=== PATIENT | male | born 1960 | race Caucasian/White ===

== ENCOUNTER 2024-01-17 09:50 | Emergency (ER) | payer MEDICARE, OTHER, SELFPAY ==
[2024-01-17] VITALS (12 sets, daily range): BP systolic 136–183; BP diastolic 90–121; PULSE 69–92; BMI 26.7
[2024-01-17 10:22] LABS: % Basophils 1.1 % (0-2); % Eosinophils 5.4 % (0-6); % Immature Granulocytes 0.3 % (0-0.5); % Monocytes 7.2 % (1.7-9.3); Absolute Basophils 0.1 10^3/uL (0-0.2); Absolute Eosinophils 0.3 10^3/uL (0-0.7); Absolute Lymphocytes 1.6 10^3/uL (1.2-3.4); Absolute Monocytes 0.5 10^3/uL (0.1-0.6); Absolute Neutrophils 3.8 10^3/uL (1.4-6.5); Hematocrit 52.2 % (39.0-52.0); Hemoglobin 17.7 g/dL (13.0-18.0); Mean Corp Hgb Conc. 33.9 g/dL (33.0-37.0); Mean Corpuscular Hgb 29.4 pg (27.0-31.0); Mean Corpuscular Volume 86.7 fL (80.0-94.0); Mean Platelet Volume 10.1 fL (7.4-10.4); Nucleated Red Blood Cells % 0 % (-); Platelet Count 215 10^3/uL (130-400); Red Blood Cell Count 6.02 10^6/uL (4.70-6.10); Red Cell Dist. Width 12.2 % (11.5-14.5); White Blood Cell Count 6.3 10^3/uL (4.8-10.8)
--- NOTE | 2024-01-17 10:28 | ED.GENMED ---
History of Present Illness
<Page Orellana PA-C - Last Filed: 01/18/24 12:01>
General
Chief Complaint: Dizziness
Source: patient
Exam Limitations: none
Time Seen by Provider: 01/17/24 10:08
Nursing documentation reviewed up to this point in time: agreed with
History of Present Illness
History of Present Illness:
Patient is a 63 year old male with hx HTN, POTS presenting to the emergency department via EMS for evaluation of dizziness. Patient states that starting yesterday evening he noticed dizziness and a spinning sensation worse when he turned his head.
Patient was able to sleep last night but states that when he woke up this morning dizziness sensation was more pronounced. States that he does not notice symptoms when he is lying completely still but with any movement of head or 'reaching' motion
with arms has symptoms. Patient denies any associated chest pain, shortness of breath, numbness/tingling in extremities, headache, visual changes, hearing loss, nausea or vomiting. Patient denies any fever or chills.
Patient does report that he has similar symptoms about once per year. Typically - he has improvement with a few liters of IV fluids.
Patient endorses compliance with BP medications.
Past History
<Page Orellana PA-C - Last Filed: 01/18/24 12:01>
Past History
ED Past Medical History: Other (Dysautonomia, POTS)
ED Past Surgical History: Other (deviated septum repair)
Social History
Tobacco: Non-smoker
Alcohol: None
Personal:
Living: with family
Employment: Other
Family History
Family History: Hypertension and Other (reviewed and Noncontributory)
Review of Systems
<Page Orellana PA-C - Last Filed: 01/18/24 12:01>
Review of Systems
Allergies reviewed?: Yes
All Other Systems: ROS reviewed and negative except as documented in HPI and ROS
Phy Exam
<Page Orellana PA-C - Last Filed: 01/18/24 12:01>
Physical Exam
Physical Exam:
Vitals: Hypertensive, otherwise vital signs reviewed. Afebrile
General: Patient is well appearing, no acute distress
Skin: Warm and dry, no rashes or lesions
Head: Normocephalic, atraumatic
Eyes: Sclera nonicteric. EOMs intact. No nystagmus. Pupils equal round and reactive to light bilaterally. Positive Cranberry-Hallpike to left.
Throat: Protecting airway
Neck: Normal ROM, no cervical spine tenderness, no meningismus
Cardiac: Regular rate and rhythm, no murmurs.
Pulm: Normal respiratory effort, no wheezes, rales, rhonchi heard on exam.
Abdomen: Abdomen soft. No abdominal tenderness.
Extremities: No evidence of cyanosis or edema. Great distal pulses.
Neuro: AAOx3. CN II-XII intact. No focal neurologic deficits. Normal finger to nose. Normal heel to fontana. Great light sensation of b/l upper and lower extremities. Strength 5/5 in upper and lower extremities.
Psychiatric: Normal affect.
Course
<Page Orellana PA-C - Last Filed: 01/18/24 12:01>
Orders/Labs/Results
Orders:
Orders
01/17/24
Electrocardiogram (*1) Stat
Other Reason for Exam: CP
Comment: DONE
01/17/24 10:01
Cardiac Monitoring- Treatment ONCE
01/17/24 10:06
CMP [Comprehensive Metabolic Panel] Urgent
Complete Blood Count/With Diff Urgent
01/17/24 10:28
Orthostatic VS- Treatment ONCE
0.9% Sodium Chloride 1000 ml [Nss] 1,000 ml IV BOLUS
01/17/24 11:04
Meclizine [Antivert] 25 mg PO NOW STA
01/17/24 12:45
0.9% Sodium Chloride 500 ml [Nss] 500 ml IV BOLUS
Abnormal Lab Results
01/17/24
10:06
Hct 52.2 H %
(39.0-52.0)
Glucose 113 H mg/dl
(70-99)
01/17/24 10:06
01/17/24 10:06
Vital Signs
Blood pressure: 169/111
Initial and Last Documented VS:
Initial Vital Signs
Temp Pulse Resp BP Pulse Ox
99.2 F 75 14 183/113 96
01/17/24 09:55 01/17/24 09:55 01/17/24 09:55 01/17/24 09:55 01/17/24 09:55
Last Documented Vital Signs
Temp Pulse Resp BP Pulse Ox
99.2 F 62 15 152/100 95
01/17/24 09:55 01/17/24 14:00 01/17/24 14:00 01/17/24 14:00 01/17/24 13:30
<Monty Wilson, DO - Last Filed: 01/17/24 11:10>
Orders/Labs/Results
Orders:
Orders
01/17/24
Electrocardiogram (*1) Stat
Other Reason for Exam: CP
Comment: DONE
01/17/24 10:01
Cardiac Monitoring- Treatment ONCE
01/17/24 10:06
CMP [Comprehensive Metabolic Panel] Urgent
Complete Blood Count/With Diff Urgent
01/17/24 10:28
Orthostatic VS- Treatment ONCE
0.9% Sodium Chloride 1000 ml [Nss] 1,000 ml IV BOLUS
01/17/24 11:04
Meclizine [Antivert] 25 mg PO NOW STA
01/17/24 12:45
0.9% Sodium Chloride 500 ml [Nss] 500 ml IV BOLUS
Abnormal Lab Results
01/17/24
10:06
Hct 52.2 H %
(39.0-52.0)
Glucose 113 H mg/dl
(70-99)
01/17/24 10:06
01/17/24 10:06
Vital Signs
Initial and Last Documented VS:
Initial Vital Signs
Temp Pulse Resp BP Pulse Ox
99.2 F 75 14 183/113 96
01/17/24 09:55 01/17/24 09:55 01/17/24 09:55 01/17/24 09:55 01/17/24 09:55
Last Documented Vital Signs
Temp Pulse Resp BP Pulse Ox
99.2 F 62 15 152/100 95
01/17/24 09:55 01/17/24 14:00 01/17/24 14:00 01/17/24 14:00 01/17/24 13:30
<Page Orellana PA-C - Last Filed: 01/18/24 12:01>
MDM/Problems Addressed
Differential Diagnosis Includes:
Not limited to: BPPV, menieres disease, dehydration, cardiac arrythmia, orthostatic hypotension, hyponatremia, POTS,
MDM/Problems Addressed:
63 year old male with history POTS presenting with positional vertigo and lightheadedness. Patient states feels like typical POTS flare which improves with IV fluids. Patient hypertensive, otherwise vitals stable. Physical exam as above. No focal
neurological deficits. Normal finger to nose bilaterally. Patient has excellent sensation to light touch on bilateral upper and lower extremities. Positive Heydi-Hallpike to left. No neuro deficits to suggest acute intracranial abnormality or stroke.
Will treat symptomatically with IVF and meclizine given suspected component of positional vertigo.
In to reassess patient. Patient with significant improvement with fluids and meclizine. Patient ambulating independently without difficulty. Steady gait. Blood pressure has decreased, although remains elevated. 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
for possible adjustments in anti-hypertensive regimen. Return precautions discussed. Stable for discharge.
Chronic conditions affecting care:
POTS
Acute Exacerbation and/or Progression of Chronic Illness:
N/A
<Page Orellana PA-C - Last Filed: 01/18/24 12:01>
*Pulse Oximetry
Patient hypoxic: no
*EKG
Interpreted by ED Provider?: Yes
EKG Intrepretation Date: 01/17/24
Interpretation: normal
Comparison EKG: no changes
Heart Rate: 71
Rate: normal
Rhythm: sinus
[place]: normal axis
Interval: normal interval
QRS Pattern: normal QRS
Ischemia: no ischemia
*Store Clerk Cashier Interpretation
Rate: normal
Interpretation: normal
Heart Rate: 75
Rhythm: sinus
*Critical Care Note
Total Time (30-74mins, 75-104mins- exclusive of procedures): Not Applicable
Data Reviewed
Review of Other/Old Records Reveals: Records
Source: previous hospital records (ER visit for similar complaint 05/11/21)
Further Testing Considered But Not Given:
Head CT - no focal neurological deficits. Symptoms improved with symptomatic treatment. Do not suspect acute intracranial abnormality vs stroke
ED Attending Note
<Page Orellana PA-C - Last Filed: 01/18/24 12:01>
-
Portions of this chart may have been created with voice recognition software.� Occasional wrong word or��sound alike� substitutions may have occurred due to the inherent limitations of voice recognition software.
<Monty Wilson DO - Last Filed: 01/17/24 11:10>
ED Attending Note
Patient seen and examined by attending physician: Yes
I performed the substantive portion of visit, reviewed & personally made and approve the management plan that is documented in note by myself or DEMETRIA.: Yes
ED Attending Note:
I have seen and evaluated the patient with a [id number] encounter. I have spoken to the advance practicer provider and involved in the medical history, the physical exam, medical decision making.
Evaluation and management service: agree unless noted differently below.
Results interpretation: agree unless noted differently below.
Focused HPI: 63-year-old male presenting with dizziness. Patient states this feels like a POTS flare. Patient states IV fluids usually helps.
Physical exam: Sitting in bed comfortably. Normal finger-nose bilaterally. Positive Heydi-Hallpike to the left.
Medical Decision Making: Patient feeling better after IV fluids but will give dose of meclizine for possible vertigo as well. He has no focal deficits to suggest intracranial hemorrhage or stroke
Discharge Plan
Departure
Patient Disposition: Home (Routine Discharge)
Date of Disposition: 01/17/24
Time of Disposition: 13:50
Patient with high blood pressure during this ER visit?: No
Condition: Good
Discharge Problem:
Positional vertigo
Instructions: Vertigo (a type of dizziness), BLOOD PRESSURE
Prescriptions:
New
meclizine 25 mg tablet
25 mg PO BID PRN (Reason: dizziness) Qty: 10 0RF
No Action
cyanocobalamin (vitamin B-12) 1,000 MCG tablet
1,000 mcg PO DAILY
lidocaine 1 PATCH adhesive patch,medicated
1 patch topical DAILY Qty: 30 2RF
Rx Instructions:
ON FOR 12 HOURS, OFF FOR 12 HOURS
Apply Patch to painful area
magnesium oxide 500 MG tablet
500 mg PO HS
docosahexaenoic acid-epa 1 CAP capsule
1 cap PO HS
cholecalciferol (vitamin D3) 1,000 UNITS tablet
1,000 units PO DAILY
turmeric 400 MG capsule
400 mg PO DAILYPRN PRN (Reason: inflammation)
carvedilol 3.125 MG tablet
3.125 mg PO BID
amitriptyline 25 MG tablet
25 mg PO BID
Referrals:
Tima Morales MD [Family Provider] - Follow up in 1 week
Activity Restrictions/Additional Instructions:
RETURN TO THE EMERGENCY DEPARTMENT WITH ANY HEADACHE, FEVER, CHILLS, CHEST PAIN, SHORTNESS OF BREATH, PERSISTENT DIZZINESS, WORSENING IN CURRENT SYMPTOMS, OR ANY OTHER CONCERNS
-As discussed�it is important to stay well-hydrated. A prescription for meclizine has been sent to your pharmacy. You can take this twice a day as needed for persistent vertigo.
-You should follow-up with your primary care provider to ensure that symptoms are improving/for further evaluation.
-Your blood pressure was elevated while in the emergency department today. You should follow up with your burial vault deliverer and installer for further evaluation/management of your high blood pressure and consider possible medication adjustments.
Interventions
Interventions:
*Risk Screen - Suicide Last Done: 01/17/24 10:20
*General Assessment Last Done: 01/17/24 10:20
*Neglect/Abuse Screening Last Done: 01/17/24 10:20
ED- Fall Risk Assessment Last Done: 01/17/24 10:20
*ED COVID-19 Vaccine History Last Done: 01/17/24 10:20
*Nursing Disposition Last Done: 01/17/24 14:28
ED- Neurological Assessment Last Done: 01/17/24 10:20
ED- Cardiac Assessment Last Done: 01/17/24 10:20
Discharge Date and Time
Discharge Date/Time: 01/17/24 14:28
Print Language: MALTESE
[2024-01-17] MEDS: NSS 1000 IV (10:56)
[2024-01-17 11:02] LABS: ALT (SGPT) 31 U/L (0-50); AST (SGOT) 26 U/L (17-59); Albumin 4.4 g/dl (3.5-5.0); Alkaline Phosphatase 66 U/L (38-126); Blood Urea Nitrogen 11 mg/dl (9-20); Calcium 9.4 mg/dl (8.4-10.2); Carbon Dioxide 26 mmol/L (22-30); Chloride 105 mmol/L (98-107); Estimated Creatinine Clearance 74 ml/min; Glucose 113 mg/dl (70-99); Potassium 4.6 mmol/L (3.5-5.1); Sodium 141 mmol/L (135-145); Total Bilirubin 0.9 mg/dl (0.2-1.3); eGFR > 60.00
[2024-01-17] MEDS: ANTIVERT 25 MG PO (11:21)
[2024-01-17] MEDS: NSS 500 IV (13:02)
== END 2024-01-17 14:28 | disposition home or self-care (01) ==
LOC: EMR 09:50
PROVIDERS: EMERGENCY PHYSICIAN Student in an Organized Health Care Education/Training Program; FAMILY PHYSICIAN Internal Medicine
DX: H81.10 Benign paroxysmal vertigo, unspecified ear (principal); I10 Essential (primary) hypertension; G90.A Postural orthostatic tachycardia syndrome [POTS]; G90.1 Familial dysautonomia [Riley-Day]; Z82.49 Family history of ischemic heart disease and other diseases of the circulatory system
CPT/HCPCS: 99283; 96360; 96361; 80053; 85025; 93005

== ENCOUNTER 2024-12-19 12:18 | Emergency (ER) | payer MEDICARE, OTHER, SELFPAY ==
[2024-12-19 12:21] VITALS: BP 156/110
[2024-12-19 12:37] LABS: % Basophils 1.4 % (0-2); % Eosinophils 3.1 % (0-6); % Immature Granulocytes 0.6 % (0-0.5); % Lymphocytes 20.3 % (20.5-51.1); % Monocytes 8.8 % (1.7-9.3); % Neutrophils 65.8 % (42.2-75.2); Absolute Basophils 0.1 10^3/uL (0-0.2); Absolute Eosinophils 0.3 10^3/uL (0-0.7); Absolute Immature Granulocytes 0.1 10^3/uL (0-0.05); Absolute Lymphocytes 1.6 10^3/uL (1.2-3.4); Absolute Monocytes 0.7 10^3/uL (0.1-0.6); Absolute Neutrophils 5.2 10^3/uL (1.4-6.5); Hematocrit 52.5 % (39.0-52.0); Hemoglobin 18.2 g/dL (13.0-18.0); Mean Corp Hgb Conc. 34.7 g/dL (33.0-37.0); Mean Corpuscular Hgb 29.7 pg (27.0-31.0); Mean Corpuscular Volume 85.6 fL (80.0-94.0); Mean Platelet Volume 9.8 fL (7.4-10.4); Nucleated Red Blood Cells % 0 % (-); Platelet Count 221 10^3/uL (130-400); Red Blood Cell Count 6.13 10^6/uL (4.70-6.10); Red Cell Dist. Width 12.6 % (11.5-14.5); White Blood Cell Count 7.9 10^3/uL (4.8-10.8)
[2024-12-19 12:59] LABS: ALT (SGPT) 33 U/L (0-50); AST (SGOT) 22 U/L (17-59); Albumin 4.4 g/dl (3.5-5.0); Alkaline Phosphatase 62 U/L (38-126); Blood Urea Nitrogen 12 mg/dl (9-20); Calcium 9.1 mg/dl (8.4-10.2); Carbon Dioxide 22 mmol/L (22-30); Chloride 111 mmol/L (98-107); Glucose 118 mg/dl (70-99); Potassium 4.8 mmol/L (3.5-5.1); Sodium 140 mmol/L (135-145); Total Protein 7.1 g/dl (6.3-8.2); eGFR > 60.00
[2024-12-19 13:10] LABS: Troponin I < 0.012 ng/ml
[2024-12-19 14:15] VITALS: BP 143/119
[2024-12-19 16:00] VITALS: BP 148/103
[2024-12-19 16:27] VITALS: BMI 27.0
[2024-12-19 17:00] VITALS: BP 168/126
[2024-12-19] MEDS: NSS 1000 IV (17:14)
--- NOTE | 2024-12-19 22:23 | ED.GENMED ---
History of Present Illness
General
Chief Complaint: Dizziness
Source: patient
Exam Limitations: none
Time Seen by Provider: 12/19/24 16:17
Nursing documentation reviewed up to this point in time: agreed with
Past History
Past History
ED Past Medical History: Other (Dysautonomia, POTS)
ED Past Surgical History: Other (deviated septum repair)
Social History
Tobacco: Non-smoker
Alcohol: None
Personal:
Living: with family
Employment: Other
Family History
Family History: Hypertension and Other (reviewed and Noncontributory)
Phy Exam
General Physical Exam
General Presentation: well appearing and no apparent distress
General age: appears stated age
General Skin: warm and dry
General Habitus: normal
General Mental: alert
Musculoskeletal Exam
Musculoskeletal Exam: full ROM and neuro vasc intact
Skin Exam
Skin Exam: normal color, warm/dry and no rash
Psychiatric Exam
Psychiatric Exam: normal mood/affect
Course
Orders/Labs/Results
Orders:
Orders
12/19/24 12:24
Electrocardiogram (*1) Urgent
Reason for Study: Chest Pain
EKG- Treatment ONCE
12/19/24 12:30
Complete Blood Count/With Diff Urgent
Comprehensive Metabolic Panel Urgent
Troponin I Urgent
12/19/24 17:02
0.9% Sodium Chloride 1000 ml [Nss] 1,000 ml IV BOLUS
Abnormal Lab Results
12/19/24
12:30
RBC 6.13 H 10^6/uL
(4.70-6.10)
Hgb 18.2 H g/dL
(13.0-18.0)
Hct 52.5 H %
(39.0-52.0)
Abs Immat Gran (auto) 0.1 H 10^3/uL
(0-0.05)
Absolute Monos (auto) 0.7 H 10^3/uL
(0.1-0.6)
Immature Gran % 0.6 H %
(0-0.5)
Lymphocytes % 20.3 L %
(20.5-51.1)
Chloride 111 H mmol/L
(98-107)
Glucose 118 H mg/dl
(70-99)
12/19/24 12:30
12/19/24 12:30
Vital Signs
Initial and Last Documented VS:
Initial Vital Signs
Temp Pulse Resp BP Pulse Ox
98.1 F 86 16 156/110 98
12/19/24 12:21 12/19/24 12:21 12/19/24 12:21 12/19/24 12:21 12/19/24 12:21
Last Documented Vital Signs
Temp Pulse Resp BP Pulse Ox
97.7 F 66 21 168/126 96
12/19/24 16:00 12/19/24 17:15 12/19/24 17:15 12/19/24 17:00 12/19/24 17:15
*Pulse Oximetry
SaO2: 96
Oxygen Mode of Delivery: Room air
ED Attending Note
-
Portions of this chart may have been created with voice recognition software.� Occasional wrong word or��sound alike� substitutions may have occurred due to the inherent limitations of voice recognition software.
Discharge Plan
Departure
Patient Disposition: Home (Routine Discharge)
Date of Disposition: 12/19/24
Time of Disposition: 18:28
Patient with high blood pressure during this ER visit?: No
Condition: Good
Covid-19: Not Applicable
Discharge Problem:
Dizziness
Instructions: Dizziness
Prescriptions:
No Action
cyanocobalamin (vitamin B-12) 1,000 MCG tablet
1,000 mcg PO DAILY
lidocaine 1 PATCH adhesive patch,medicated
1 patch topical DAILY Qty: 30 2RF
Rx Instructions:
ON FOR 12 HOURS, OFF FOR 12 HOURS
Apply Patch to painful area
magnesium oxide 500 MG tablet
500 mg PO HS
docosahexaenoic acid-epa 1 CAP capsule
1 cap PO HS
cholecalciferol (vitamin D3) 1,000 UNITS tablet
1,000 units PO DAILY
turmeric 400 MG capsule
400 mg PO DAILYPRN PRN (Reason: inflammation)
carvedilol 3.125 MG tablet
3.125 mg PO BID
amitriptyline 25 MG tablet
25 mg PO BID
meclizine 25 mg tablet
25 mg PO BID PRN (Reason: dizziness) Qty: 10 0RF
Referrals:
Tima Morales MD [Family Provider, Internal Medicine] - Tomorrow
Interventions
Interventions:
*Risk Screen - Suicide Last Done: 12/19/24 12:21
*General Assessment Last Done: 12/19/24 16:07
*Neglect/Abuse Screening Last Done: 12/19/24 12:21
*ED- Fall Risk Assessment Last Done: 12/19/24 16:07
*ED COVID-19 Vaccine History Last Done: 12/19/24 16:07
*Nursing Disposition Last Done: 12/19/24 18:36
ED- Neurological Assessment Last Done: 12/19/24 16:12
ED- Cardiac Assessment Last Done: 12/19/24 18:36
ED Swallowing Screen Last Done: 12/19/24 16:11
Discharge Date and Time
Discharge Date/Time: 12/19/24 18:41
Print Language: INDONESIAN
== END 2024-12-19 18:41 | disposition home or self-care (01) ==
LOC: EMR 12:18
PROVIDERS: EMERGENCY PHYSICIAN Emergency Medicine; FAMILY PHYSICIAN Internal Medicine
DX: R42 Dizziness and giddiness (principal)
CPT/HCPCS: 96360; 99284; 80053; 84484; 85025; 93005